=== PATIENT | female | born 1965 | race Caucasian/White ===

== ENCOUNTER 2020-11-09 06:42 | Inpatient (IN) ==
[2020-11-05 12:52] LABS: Basophils # 0.1 10*3/uL (0.0-0.2); Basophils % 0.6 % (0.0-0.8); Eosinophils # 0.1 10*3/uL (0.0-0.87); Eosinophils % 1.1 % (0.00-10.9); Hematocrit 47.2 VOL% (35.7-47.0); Hemoglobin 15.8 GM/DL (12.0-16.0); Immature Granulocytes % 0.1 %; Immature Granulocytes Absolute 0.01 #; Lymphocytes # 2.4 10*3/uL (1.4-4.0); Lymphocytes % 29.7 % (21.3-54.2); Mean Corpuscular HGB Conc 33.5 GM/DL (32-36); Mean Corpuscular Volume 92.7 FL (87-102); Mean Platelet Volume 11.3 FL (9.6-12.0); Monocytes % 5.8 % (1.7-12.7); Neutrophils % 62.7 % (38.7-73.9); Platelet Count 310 T/CUMM (130-400); Red Blood Count 5.09 MC/CUMM (3.8-5.5); Red Cell Distribution Width 12.9 % (9.3-17.3); White Blood Count 8.2 T/CUMM (4-12)
[2020-11-05 13:05] LABS: PT Patient Result 11.2 SECS (9.8-11.9)
[2020-11-05 13:22] LABS: Calcium 9.3 MG/DL (8.5-10.1); Osmolality,Calculated 281.4 MOS/KG (273-304); Potassium 4.4 MMOL/L (3.5-5.1)
[~2020-11-09 06:42] MED LIST: LACTATED RINGERS 1,000 ML IV SCH; ceFAZolin 1,000 MG in SYRINGE 1 EACH IV ONE
[2020-11-09] MEDS ORDERED: GABAPENTIN 400 MG CAPSULE PO ONE (07:13)
[2020-11-09] MEDS ORDERED: DIAZEPAM 5 MG TABLET PO STA (07:13)
[2020-11-09] MEDS ORDERED: FAMOTIDINE 20 MG TABLET PO STA (07:14)
[2020-11-09] MEDS ORDERED: SCOPOLAMINE 1.5 MG PATCH TRANSDERM ONE (07:14)
[2020-11-09] MEDS ORDERED: SCOPOLAMINE 1.5 MG PATCH TRANSDERM STA (07:15)
[2020-11-09] MEDS ORDERED: GABAPENTIN 400 MG CAPSULE ONE (07:19)
[2020-11-09] MEDS ORDERED: DIAZEPAM 5 MG TABLET ONE (07:19)
[2020-11-09] MEDS ORDERED: FAMOTIDINE 20 MG TABLET ONE (07:19)
[2020-11-09] MEDS ORDERED: SEVOFLURANE 1 UNIT/15 MINUTE INH ONE (11:18)
[2020-11-09] MEDS ORDERED: NITROGLYCERIN DRIP 50 MG/250 ML BOTTLE IV ONE (11:18)
[2020-11-09] MEDS ORDERED: HEPARIN/NACL 0.9% 2 UNITS/ML 500 ML IV ONE (11:18)
[2020-11-09] MEDS ORDERED: PHENYLEPHRINE DRIP 20 MG/250 ML PREMIX IV ONE (11:19)
[2020-11-09] MEDS ORDERED: LIDOCAINE 2% 5 ML VIAL ONE (11:23)
[2020-11-09] MEDS ORDERED: MIDAZOLAM 2 MG/2 ML VIAL ONE (11:23)
[2020-11-09] MEDS ORDERED: ROCURONIUM 50 MG/5 ML VIAL IV ONE (11:23)
[2020-11-09] MEDS ORDERED: fentaNYL 100 MCG/2 ML VIAL ONE ×2 (11:23→12:44)
[2020-11-09] MEDS ORDERED: propofoL 200 MG/20 ML VIAL IV ONE (11:23)
[2020-11-09] MEDS ORDERED: ONDANSETRON 4 MG/2 ML VIAL ONE (11:23)
[2020-11-09] MEDS ORDERED: ePHEDrine 50 MG/ML VIAL ONE (12:25)
[2020-11-09] MEDS ORDERED: DEXAMETHASONE 4 MG/1 ML VIAL ONE ×2 (13:30)
[2020-11-09] MEDS ORDERED: NEOSTIGMINE 10 MG/10 ML VIAL ONE ×3 (13:39)
[2020-11-09] MEDS ORDERED: TISSUE ADHESIVE 1 EACH APPLICATOR TOP ONE (13:41)
[2020-11-09] MEDS ORDERED: HYDROmorphone 2 MG/1 ML VIAL IV PRN ×2 (13:52→14:33)
[2020-11-09] MEDS ORDERED: MEPERIDINE 25 MG/1 ML VIAL ONE (14:14)
[2020-11-09] MEDS: MEPERIDINE 25 MG/1 ML VIAL IV PRN ×2 (14:15→15:25)
[2020-11-09] MEDS ORDERED: diphenhydrAMINE 50 MG/1 ML VIAL IV PRN (14:33)
[2020-11-09] MEDS ORDERED: ONDANSETRON 4 MG/2 ML VIAL IV PRN (14:33)
[2020-11-09] MEDS ORDERED: PROMETHAZINE INJ 25 MG in SODIUM CHLORIDE 0.9% 50 ML IV PRN (14:33)
[2020-11-09] MEDS ORDERED: ALBUTEROL/IPRATROPIUM 3 ML NEB RESP TX ONE (15:44)
[2020-11-09] MEDS: oxyCODONE/ACETAMINOPHEN 5-325 MG TABLET PO PRN ×2 (17:00→23:02)
[2020-11-09] MEDS: LACTATED RINGERS 1,000 ML IV SCH (17:10)
[2020-11-09] MEDS: [UNRECOGNIZED DRUG - OTHER] INH SCH ×2 (17:11→22:08)
[2020-11-09] MEDS ORDERED: ALBUTEROL 2.5 MG/3 ML NEB RESP TX PRN (19:00)
[2020-11-09] MEDS: ALBUTEROL/IPRATROPIUM 3 ML NEB RESP TX SCH (19:34)
[2020-11-09] MEDS: HYDROmorphone 2 MG/1 ML VIAL IV PRN (21:00)
[2020-11-09] MEDS: ONDANSETRON 4 MG/2 ML VIAL IV PRN (23:01)
[2020-11-10] MEDS: ALBUTEROL/IPRATROPIUM 3 ML NEB RESP TX SCH ×4 (00:23→19:24)
[2020-11-10] MEDS: oxyCODONE/ACETAMINOPHEN 5-325 MG TABLET PO PRN ×3 (00:24→18:44)
[2020-11-10] MEDS: [UNRECOGNIZED DRUG - OTHER] INH SCH ×3 (03:29→15:44)
[2020-11-10] MEDS: CHOLECALCIFEROL 1,000 UNIT TABLET PO SCH (09:11)
[2020-11-10] MEDS: METOPROLOL TARTRATE 25 MG TABLET PO SCH (09:11)
[2020-11-10] MEDS: PANTOPRAZOLE 20 MG TABLET PO SCH (09:12)
[2020-11-10] MEDS: ENOXAPARIN 40 MG/0.4 ML SYRINGE SUBCUT SCH (09:13)
[2020-11-10] MEDS: ROSUVASTATIN 10 MG TABLET PO SCH (09:13)
[2020-11-10] MEDS: VENLAFAXINE 37.5 MG TABLET PO SCH (09:15)
[2020-11-10] MEDS: MECOBALAMIN 1000 MCG PO SCH (09:16)
[2020-11-10] MEDS: ONDANSETRON 4 MG/2 ML VIAL IV PRN (10:22)
[2020-11-10] MEDS: HYDROmorphone 2 MG/1 ML VIAL IV PRN (11:14)
[2020-11-10] MEDS: LACTATED RINGERS 1,000 ML IV SCH (15:44)
[2020-11-11] MEDS: ALBUTEROL/IPRATROPIUM 3 ML NEB RESP TX SCH ×4 (01:08→19:34)
[2020-11-11] MEDS: [UNRECOGNIZED DRUG - OTHER] INH SCH ×5 (02:00→21:07)
[2020-11-11] MEDS: HYDROmorphone 2 MG/1 ML VIAL IV PRN ×2 (05:36→10:42)
[2020-11-11] MEDS: PANTOPRAZOLE 20 MG TABLET PO SCH (09:06)
[2020-11-11] MEDS: CHOLECALCIFEROL 1,000 UNIT TABLET PO SCH (09:06)
[2020-11-11] MEDS: ENOXAPARIN 40 MG/0.4 ML SYRINGE SUBCUT SCH (09:06)
[2020-11-11] MEDS: VENLAFAXINE 37.5 MG TABLET PO SCH (09:06)
[2020-11-11] MEDS: ROSUVASTATIN 10 MG TABLET PO SCH (09:06)
[2020-11-11] MEDS: METOPROLOL TARTRATE 25 MG TABLET PO SCH (09:06)
[2020-11-11] MEDS: MECOBALAMIN 1000 MCG PO SCH (09:48)
[2020-11-11] MEDS: oxyCODONE/ACETAMINOPHEN 5-325 MG TABLET PO PRN ×2 (18:40→23:56)
[2020-11-12] MEDS: ALBUTEROL/IPRATROPIUM 3 ML NEB RESP TX SCH ×2 (01:15→07:33)
[2020-11-12] MEDS: [UNRECOGNIZED DRUG - OTHER] INH SCH ×2 (05:05→09:19)
[2020-11-12] MEDS: VENLAFAXINE 37.5 MG TABLET PO SCH (09:12)
[2020-11-12] MEDS: METOPROLOL TARTRATE 25 MG TABLET PO SCH (09:12)
[2020-11-12] MEDS: ROSUVASTATIN 10 MG TABLET PO SCH (09:12)
[2020-11-12] MEDS: PANTOPRAZOLE 20 MG TABLET PO SCH (09:12)
[2020-11-12] MEDS: CHOLECALCIFEROL 1,000 UNIT TABLET PO SCH (09:12)
[2020-11-12] MEDS: ENOXAPARIN 40 MG/0.4 ML SYRINGE SUBCUT SCH (09:13)
[2020-11-12] MEDS: oxyCODONE/ACETAMINOPHEN 5-325 MG TABLET PO PRN (09:13)
[2020-11-12] MEDS: MECOBALAMIN 1000 MCG PO SCH (09:19)
[2020-11-12 09:49] VITALS: BP 135/68
== END 2020-11-12 09:55 | disposition home or self-care (01) | DRG 854 ==
LOC: N.OR 06:42 → N.SDSINP 06:48 → N.4E 16:31
PROVIDERS: ADMIT Surgery; ATTEND Surgery